=== PATIENT | male | born 1995 | race American Indian/Alaskan Native ===

== ENCOUNTER 2017-03-29 21:54 | Emergency (ER) | payer SELFPAY ==
[2017-03-29 22:24] VITALS: BP 181/118
== END 2017-03-30 03:06 | disposition left against medical advice (07) ==
LOC: ED 21:54
DX: S61.216A Laceration without foreign body of right little finger without damage to nail, initial encounter (principal); Z53.21 Procedure and treatment not carried out due to patient leaving prior to being seen by health care provider

== ENCOUNTER 2018-03-26 12:36 | Emergency (ER) | payer SELFPAY ==
[2018-03-26] MEDS ORDERED: MOTRIN PO ONE (12:53)
[2018-03-26] MEDS ORDERED: NORCO 5/325 PO ONE (12:53)
[2018-03-26] MEDS ORDERED: MOTRIN ONE (12:54)
[2018-03-26] MEDS ORDERED: NORCO 5/325 ONE (12:54)
[2018-03-26 13:21] LABS: Hematocrit 40.4 % (35.5-45.6); Hemoglobin 12.9 gm/dl (11.8-15.2); Mean Corpuscular HGB Conc 32 % (32-34); Mean Corpuscular Hemoglobin 26 pg (28-32); Mean Corpuscular Volume 82 fl (84-94); Platelet Count 245 K/mm3 (140-440); Red Blood Count 4.92 M/mm3 (3.65-5.03); Red Cell Distribution Width 14.2 % (13.2-15.2)
[2018-03-26 13:38] LABS: BUN/Creatinine Ratio 13; Blood Urea Nitrogen 10 mg/dL (9-20); Calcium 9.7 mg/dL (8.4-10.2); Hemolysis Index 12
[2018-03-26] MEDS ORDERED: NACL 0.9% 1000 ML 1,000 ML IV ONE ×3 (13:57→18:38)
[2018-03-26] MEDS ORDERED: HumuLIN R IV ONE ×3 (13:57→18:40)
[2018-03-26] MEDS ORDERED: BOOSTRIX IM ONE (13:59)
[2018-03-26] MEDS ORDERED: CLEOCIN 600 MG/50 mL 600 MG/50 ML BAG IV ONE (13:59)
[2018-03-26] MEDS ORDERED: CATAPRES PO ONE (14:40)
--- NOTE | 2018-03-26 14:43 | Emergency Department Report ---
- General Chief complaint: Skin/Abscess/Foreign Body Stated complaint: LEFT LEG CYST Time Seen by Provider: 03/26/18 14:28 Source: patient Mode of arrival: Ambulatory Limitations: No Limitations - History of Present Illness Initial comments: 23-year-old obese male with a past medical history rhabdomyolysis in the past presents to the hospital complaining of boil to upper left thigh with drainage times several days. Complains of 8/10 pain and worse with palpation. No reports of fever, nausea, or vomiting. Increased urinary frequency reported without increased thirst. Patient presents with elevated BP and denies previous history - Related Data Previous Rx's Medication Instructions Recorded Last Taken Type Clindamycin [Clindamycin CAP] 300 mg PO Q8H #30 cap 03/26/18 Unknown Rx Insulin NPH/Regular [Novolin 70/30] 25 unit SQ BIDDIAB #1 vial 03/26/18 Unknown Rx Syringe-Needle,Insulin,0.5 ml 1 each MC BID #1 box 03/26/18 Unknown Rx [Insulin Syringe/Needle 0.5 ML] Allergies Allergy/AdvReac Type Severity Reaction Status Date / Time seafood Allergy Anaphylaxis Uncoded 03/26/18 12:44 Abscess Boil HPI - HPI Chief Complaint: Skin/Abscess/Foreign Body Stated Complaint: LEFT LEG CYST Time Seen by Provider: 03/26/18 14:28 Home Medications: Previous Rx's Medication Instructions Recorded Last Taken Type Clindamycin [Clindamycin CAP] 300 mg PO Q8H #30 cap 03/26/18 Unknown Rx Insulin NPH/Regular [Novolin 70/30] 25 unit SQ BIDDIAB #1 vial 03/26/18 Unknown Rx Syringe-Needle,Insulin,0.5 ml 1 each MC BID #1 box 03/26/18 Unknown Rx [Insulin Syringe/Needle 0.5 ML] Allergies/Adverse Reactions: Allergies Allergy/AdvReac Type Severity Reaction Status Date / Time seafood Allergy Anaphylaxis Uncoded 03/26/18 12:44 ED Review of Systems ROS: Stated complaint: LEFT LEG CYST Other details as noted in HPI Comment: All other systems reviewed and negative ED Past Medical Hx - Past Medical History Previous Medical History?: Yes Additional medical history: rhabdo - Surgical History Past Surgical History?: No - Social History Smoking Status: Current Every Day Smoker Substance Use Type: None - Medications Home Medications: Home Medications Medication Instructions Recorded Confirmed Last Taken Type Clindamycin [Clindamycin CAP] 300 mg PO Q8H #30 cap 03/26/18 Unknown Rx Insulin NPH/Regular [Novolin 70/30] 25 unit SQ BIDDIAB #1 vial 03/26/18 Unknown Rx Syringe-Needle,Insulin,0.5 ml 1 each MC BID #1 box 03/26/18 Unknown Rx [Insulin Syringe/Needle 0.5 ML] ED Physical Exam - General Limitations: No Limitations - Other Other exam information: General: No limitations, patient is alert in no acute distress Head exam: Atraumatic, normocephalic Eyes exam: Normal appearance ENT: Moist mucous membrane Neck exam: Normal inspection, full range of motion, no meningismus nontender Respiratory exam: Clear to auscultation bilateral, no wheezes, rales, crackles Cardiovascular: Tachycardic regular rhythm Abdomen: Soft, nondistended, and nontender, with normal bowel sounds, no rebound, or guarding Extremity: Full range of motion normal inspection no deformity Back: Normal Inspection, full range of motion, no tenderness Neurologic: Alert, oriented x3, cranial nerves intact, no motor or sensory deficit Psychiatric: normal affect, normal mood Skin: 3 cm upper medial thigh abscess that has a hole without active drainage at this time. Positive induration without fluctuance ED Course Vital Signs 03/26/18 03/26/18 03/26/18 12:44 13:21 14:27 Temperature 98.7 F Pulse Rate 113 H Respiratory 18 18 18 Rate Blood Pressure 174/109 Blood Pressure [Right] O2 Sat by Pulse 97 100 Oximetry 03/26/18 03/26/18 03/26/18 14:38 15:10 18:42 Temperature Pulse Rate 86 86 Respiratory 18 Rate Blood Pressure 162/92 Blood Pressure 162/107 148/84 [Right] O2 Sat by Pulse Oximetry - Reevaluation(s) Reevaluation #1: 03/26/18 14:46 Patient received [place] and Motrin prior to my evaluation to see if this would help patient's blood pressure. BP remains elevated at this time therefore clonidine 0.1 mg ordered ED Medical Decision Making - Lab Data Result diagrams: 03/26/18 12:57 03/26/18 12:57 Lab Results 03/26/18 03/26/18 03/26/18 Range/Units 12:57 12:57 13:55 WBC 8.6 (4.5-11.0) K/mm3 RBC 4.92 (3.65-5.03) M/mm3 Hgb 12.9 (11.8-15.2) gm/dl Hct 40.4 (35.5-45.6) % MCV 82 L (84-94) fl MCH 26 L (28-32) pg MCHC 32 (32-34) % RDW 14.2 (13.2-15.2) % Plt Count 245 (140-440) K/mm3 VBG pH 7.345 (7.320-7.420) Sodium 124 L (137-145) mmol/L Potassium 4.4 (3.6-5.0) mmol/L Chloride 82.1 L (98-107) mmol/L Carbon Dioxide 21 L (22-30) mmol/L Anion Gap 25 mmol/L BUN 10 (9-20) mg/dL Creatinine 0.8 (0.8-1.5) mg/dL Estimated GFR > 60 ml/min BUN/Creatinine Ratio 13 % Glucose 839 H* (75-100) mg/dL POC Glucose (70-105) Calcium 9.7 (8.4-10.2) mg/dL Urine Color (Yellow) Urine Turbidity (Clear) Urine pH (5.0-7.0) Ur Specific [place] (1.003-1.030) Urine Protein (Negative) mg/dL Urine Glucose (UA) (Negative) mg/dL Urine Ketones (Negative) mg/dL Urine Blood (Negative) Urine Nitrite (Negative) Urine Bilirubin (Negative) Urine Urobilinogen (<2.0) mg/dL Ur Leukocyte Esterase (Negative) Urine WBC (Auto) (0.0-6.0) /HPF Urine RBC (Auto) (0.0-6.0) /HPF Urine Mucus /HPF 03/26/18 03/26/18 Range/Units 14:26 16:18 WBC (4.5-11.0) K/mm3 RBC (3.65-5.03) M/mm3 Hgb (11.8-15.2) gm/dl Hct (35.5-45.6) % MCV (84-94) fl MCH (28-32) pg MCHC (32-34) % RDW (13.2-15.2) % Plt Count (140-440) K/mm3 VBG pH (7.320-7.420) Sodium (137-145) mmol/L Potassium (3.6-5.0) mmol/L Chloride (98-107) mmol/L Carbon Dioxide (22-30) mmol/L Anion Gap mmol/L BUN (9-20) mg/dL Creatinine (0.8-1.5) mg/dL Estimated GFR ml/min BUN/Creatinine Ratio % Glucose (75-100) mg/dL POC Glucose 475 H (70-105) Calcium (8.4-10.2) mg/dL Urine Color Colorless (Yellow) Urine Turbidity Clear (Clear) Urine pH 6.0 (5.0-7.0) Ur Specific [place] 1.028 (1.003-1.030) Urine Protein <15 mg/dl (Negative) mg/dL Urine Glucose (UA) >=500 (Negative) mg/dL Urine Ketones 20 (Negative) mg/dL Urine Blood Neg (Negative) Urine Nitrite Neg (Negative) Urine Bilirubin Neg (Negative) Urine Urobilinogen < 2.0 (<2.0) mg/dL Ur Leukocyte Esterase Neg (Negative) Urine WBC (Auto) < 1.0 (0.0-6.0) /HPF Urine RBC (Auto) 2.0 (0.0-6.0) /HPF Urine Mucus Few /HPF - Medical Decision Making Left thigh abscess Patient provided tetanus and clindamycin IV No active drainage New onset diabetes Glucose 800s with normal pH and ketones in urine Hospitalist to evaluate 2 regular Insulin 10mg boluses given along with 2 L NS with insulin now in the 300's hospitalist to dispo (see note and consult) additional 1 Liter of NS ordered and additional insulin as per sliding scale protocol Hypertension Persistent despite pain control Clonidine 0.1mg ordered Normal renal function - Differential Diagnosis new-onset diabetes, DKA, hypertension Critical Care Time: No Critical care attestation.: If time is entered above; I have spent that time in minutes in the direct care of this critically ill patient, excluding procedure time. ED Disposition Clinical Impression: Diabetes mellitus, new onset, Hypertension, Abscess, Hyperglycemia Disposition: DC-01 TO HOME OR SELFCARE Is pt being admited?: No Does the pt Need Aspirin: No Condition: Stable Instructions: Diabetes Mellitus Type 2 in Adults (ED), Abscess (ED), Hypertension (ED) Prescriptions: Clindamycin [Clindamycin CAP] 300 mg PO Q8H #30 cap Insulin NPH/Regular [Novolin 70/30] 25 unit SQ BIDDIAB #1 vial Syringe-Needle,Insulin,0.5 ml [Insulin Syringe/Needle 0.5 ML] 1 each MC BID #1 box Time of Disposition: 18:40 (hospitalist to dispo)
[2018-03-26 15:13] LABS: Bilirubin,Urine NEG (Negative); Blood,Urine NEG (Negative); Color,Urine Colorless (Yellow); Mucus,Urine FEW /HPF; Protein,Urine <15 mg/dL mg/dL (Negative); Urobilinogen,Urine < 2.0 mg/dL (<2.0)
[2018-03-26 15:16] LABS: WBC,Urine < 1.0 /HPF (0.0-6.0)
--- NOTE | 2018-03-26 17:38 | Consultation ---
Medications and Allergies Allergies Allergy/AdvReac Type Severity Reaction Status Date / Time seafood Allergy Anaphylaxis Uncoded 03/26/18 12:44 Exam - Constitutional Vitals: Temp Pulse Resp BP Pulse Ox 98.7 F 86 18 162/92 100 03/26/18 12:44 03/26/18 15:10 03/26/18 14:27 03/26/18 15:10 03/26/18 14:27 Results - Labs CBC & Chem 7: 03/26/18 12:57 03/26/18 12:57 Labs: Abnormal lab results 03/26/18 03/26/18 03/26/18 Range/Units 12:57 12:57 16:18 MCV 82 L (84-94) fl MCH 26 L (28-32) pg Sodium 124 L (137-145) mmol/L Chloride 82.1 L (98-107) mmol/L Carbon Dioxide 21 L (22-30) mmol/L Glucose 839 H* (75-100) mg/dL POC Glucose 475 H (70-105)
[2018-03-26 18:43] VITALS: BP 148/84
== END 2018-03-26 20:03 | disposition home or self-care (01) ==
LOC: ED 12:36
DX: L02.416 Cutaneous abscess of left lower limb (principal); E11.65 Type 2 diabetes mellitus with hyperglycemia; I10 Essential (primary) hypertension; F17.200 Nicotine dependence, unspecified, uncomplicated; Z91.013 Allergy to seafood
CPT/HCPCS: 36415; 80048; 81001; 82805; 82962; 85027; 90471; 90715; 96361; 96365; 96376; 99284; J7030; J1815

== ENCOUNTER 2018-11-13 14:09 | Emergency (ER) | payer OTHER ==
[2018-11-13 14:14] VITALS: BP 185/93
--- NOTE | 2018-11-13 14:19 | Emergency Department Report ---
Blank Doc - Documentation Documentation: 23 y o male presents to Ed cc of right 4th digit x 2 weeks no trauma or injuries Xray
--- NOTE | 2018-11-13 15:00 | XRay Report ---
PROCEDURE: XR HAND 3+V RT TECHNIQUE: 3 views right hand HISTORY: right hand pain COMPARISONS: None FINDINGS: Soft tissue swelling third digit. No soft tissue gas. No radiopaque foreign body. No acute fracture o r malalignment. Joint spaces preserved. No significant arthritic change. IMPRESSION: Soft tissue swelling third digit. No associated secondary finding identified. No acute fracture or malalignment. This document is electronically signed by Deven Coleman MD., November 13 2018 02:58:26 PM ET
--- NOTE | 2018-11-13 15:40 | Emergency Department Report ---
Abscess Boil HPI - HPI Chief Complaint: Skin/Abscess/Foreign Body Stated Complaint: R SWOLLEN FINGERS Time Seen by Provider: 11/13/18 14:13 Duration: 1 Week Location: Upper Extremity (right 3rd finger) Severity: Moderate History: No Fever, No Pain, No Purulent Drainage, No Numbness, No Foreign Body, No Previous History, No Insect Bite HPI: Sustained 23-year-old female that presents with pain to right third finger with swelling for 1 week. Patient states he woke up with swelling and redness to his right 3rd finger of unknown cause. Patient states initially he saw a small bump which burst yesterday with pus drainage. He also complains of some tingling to the distal finger. He denies recent injury, initially, weakness, or fever. Home Medications: Previous Rx's Medication Instructions Recorded Last Taken Type Clindamycin [Clindamycin CAP] 300 mg PO Q8H #30 cap 03/26/18 Unknown Rx Insulin NPH/Regular [Novolin 70/30] 25 unit SQ BIDDIAB #1 vial 03/26/18 Unknown Rx Syringe-Needle,Insulin,0.5 ml 1 each MC BID #1 box 03/26/18 Unknown Rx [Insulin Syringe/Needle 0.5 ML] Ibuprofen [Motrin 600 MG tab] 600 mg PO Q8H PRN #20 tablet 11/13/18 Unknown Rx Sulfamethoxazole/Trimethoprim 1 each PO BID #20 tablet 11/13/18 Unknown Rx [Bactrim DS TAB] traMADol [Ultram 50 MG tab] 50 mg PO Q6HR PRN #12 tablet 11/13/18 Unknown Rx Allergies/Adverse Reactions: Allergies Allergy/AdvReac Type Severity Reaction Status Date / Time seafood Allergy Anaphylaxis Uncoded 11/13/18 14:09 ED Review of Systems ROS: Stated complaint: R SWOLLEN FINGERS Other details as noted in HPI Constitutional: denies: chills, fever Respiratory: denies: cough, shortness of breath, wheezing Cardiovascular: denies: chest pain, palpitations Gastrointestinal: denies: abdominal pain, nausea, diarrhea Musculoskeletal: joint swelling (swelling, numbness, and pain to right third finger) Skin: denies: rash, lesions Neurological: denies: headache, weakness, paresthesias Psychiatric: denies: anxiety, depression ED Past Medical Hx - Past Medical History Hx Diabetes: Yes Additional medical history: rhabdo - Surgical History Past Surgical History?: No - Social History Smoking Status: Current Every Day Smoker Substance Use Type: Alcohol - Medications Home Medications: Home Medications Medication Instructions Recorded Confirmed Last Taken Type Clindamycin [Clindamycin CAP] 300 mg PO Q8H #30 cap 03/26/18 Unknown Rx Insulin NPH/Regular [Novolin 70/30] 25 unit SQ BIDDIAB #1 vial 03/26/18 Unknown Rx Syringe-Needle,Insulin,0.5 ml 1 each MC BID #1 box 03/26/18 Unknown Rx [Insulin Syringe/Needle 0.5 ML] Ibuprofen [Motrin 600 MG tab] 600 mg PO Q8H PRN #20 tablet 11/13/18 Unknown Rx Sulfamethoxazole/Trimethoprim 1 each PO BID #20 tablet 11/13/18 Unknown Rx [Bactrim DS TAB] traMADol [Ultram 50 MG tab] 50 mg PO Q6HR PRN #12 tablet 11/13/18 Unknown Rx ED Abscess Boil Physical Exam - Exam General: Vital signs noted. No distress. Alert and acting appropriately. Front/Back of Body, Lg (Color): 1 - Right third phalanx, erythematous, swelling, tenderness, cellulitis of the palm proximal, no palpable pockets, drainage, skin intact. Exam: Yes Tenderness, Yes Surrounding Cellulites/Erythema, Yes Normal Neurologic Exam, Yes Normal Circulation, No Fluctuance, No Lymphangitis, No Crepitation, No Heart Murmur ED Course Vital Signs 11/13/18 14:13 Temperature 98.2 F Pulse Rate 88 Respiratory 16 Rate Blood Pressure 185/93 O2 Sat by Pulse 99 Oximetry Critical care attestation.: If time is entered above; I have spent that time in minutes in the direct care of this critically ill patient, excluding procedure time. ED Medical Decision Making - Medical Decision Making Patient is stable and examined by me. No acute signs of distress noted. Findings are susceptible as cellulitis of her right third phalanx. Consulted with the attending who agreed. I&D is not indicated at this time. Discussed plan to start bactrim DS, tramadol, and ibuprofen with patient. Educated patient and spouse on follow up plan for wound reassessed in 2-3 days. Patient agrees to ED plan of care. Discharged home and follow up with PCP in 2-3 days. ED Disposition Clinical Impression: Cellulitis Qualifiers: Site of cellulitis: extremity Site of cellulitis of extremity: finger Laterality: right Qualified Code(s): L03.011 - Cellulitis of right finger Disposition: TO HOME OR SELFCARE Is pt being admited?: No Does the pt Need Aspirin: No Condition: Stable Instructions: Cellulitis (ED) Additional Instructions: Complete full round of bactrim DS antibiotic as prescribed. Avoid drinking alcohol while taking antibiotics and for up to 24 hours of completion. Follow up with PCP or ER in 2-3 days for reevaluation of wound.. Return to ER if foul smelling discharge, swelling, or severe pain to wound. Prescriptions: Sulfamethoxazole/Trimethoprim [Bactrim DS TAB] 1 each PO BID #20 tablet Ibuprofen [Motrin 600 MG tab] 600 mg PO Q8H PRN #20 tablet PRN Reason: Pain traMADol [Ultram 50 MG tab] 50 mg PO Q6HR PRN #12 tablet PRN Reason: Pain Referrals: [facility] [Outside] - 3-[address] [facility] [Outside] - 3-[address] [facility] [Outside] - 3-5 Days Forms: Work/School Release Form(ED) Time of Disposition: 15:47
== END 2018-11-13 16:18 | disposition home or self-care (01) ==
LOC: ED 14:09
DX: L03.011 Cellulitis of right finger (principal); E11.9 Type 2 diabetes mellitus without complications; F17.200 Nicotine dependence, unspecified, uncomplicated